=== PATIENT | male | born 1995 ===

== ENCOUNTER 2022-04-28 07:25 | Emergency (ER) | payer OTHER ==
[2022-04-28] MEDS ORDERED: Acetaminophen/HYDROcodone 325-5 MG Tab PO ONE (20:10)
[2022-04-28] MEDS ORDERED: Silver Sulfadiazine 1% Crm 50 GM Tube TOP ONE (21:40)
== END 2022-04-28 23:05 | disposition home or self-care (01) ==
LOC: DL.ED 07:25
DX: T23.211A Burn of second degree of right thumb (nail), initial encounter (principal); T23.271A Burn of second degree of right wrist, initial encounter; T22.211A Burn of second degree of right forearm, initial encounter; X19.XXXA Contact with other heat and hot substances, initial encounter
CPT/HCPCS: 16020; 99001; 99283